=== PATIENT | female | born 1990 | race Caucasian/White ===

== ENCOUNTER 2017-08-05 19:40 | Outpatient (CLI) | payer SELFPAY ==
[2017-08-05 20:40] LABS: HEMATOCRIT 34.8 % (36.0-47.0); HEMOGLOBIN 11.7 g/dL (12.0-15.5); MEAN CORPUSCULAR HEMOGLOBIN 28.9 pg (27.0-33.4); MEAN CORPUSCULAR HGB CONC 33.6 g/dL (32.0-36.0); MEAN CORPUSCULAR VOLUME 86 fl (80-97); PLATELET COUNT 199 10^3/uL (150-450); RED BLOOD COUNT 4.05 10^6/uL (3.72-5.28); RED CELL DISTRIBUTION WIDTH 13.5 % (11.5-14.0); WHITE BLOOD COUNT 12.9 10^3/uL (4.0-10.5)
[2017-08-05 20:54] LABS: APPEARANCE,URINE SLIGHTLY-CLOUDY; BILIRUBIN,URINE NEGATIVE (NEGATIVE); COLOR,URINE YELLOW; GLUCOSE, URINE NEGATIVE (NEGATIVE); KETONES,URINE 80 mg/dL (NEGATIVE); LEUKOCYTE ESTERASE,URINE NEGATIVE (NEGATIVE); NITRITE,URINE NEGATIVE (NEGATIVE); PROTEIN,URINE NEGATIVE (NEGATIVE); URINE SPECIFIC GRAVITY 1.021; UROBILINOGEN,URINE NEGATIVE mg/dL (<2.0)
[2017-08-05] MEDS ORDERED: ACETAMINOPHEN 325 MG TABLET PO ONE (20:58)
[2017-08-05] MEDS ORDERED: ACETAMINOPHEN 325 MG TABLET ONE (20:59)
[2017-08-05 21:04] LABS: ABSOLUTE LYMPHOCYTES# (MANUAL) 0.4 10^3/uL (0.5-4.7); ABSOLUTE MONOCYTES # (MANUAL) 0.4 10^3/uL (0.1-1.4); ABSOLUTE NEUTROPHILS# (MANUAL) 12.1 10^3/uL (1.7-8.2); BASOPHILS % (MANUAL) 0 % (0-2); EOSINOPHILS % (MANUAL) 0 % (0-6); LYMPHOCYTES % (MANUAL) 3 % (13-45); MONOCYTES % (MANUAL) 3 % (3-13); SEGMENTED NEUTROPHILS % (MAN) 94 % (42-78); TOTAL CELLS COUNTED 100
[2017-08-05 21:05] LABS: PLATELET COMMENT ADEQUATE; RBC MORPHOLOGY COMMENT NORMO-CYTIC/CHROMIC
[2017-08-05 21:19] LABS: URINE AMPHETAMINES SCREEN NEGATIVE; URINE BARBITURATES SCREEN NEGATIVE; URINE BENZODIAZEPINES SCREEN NEGATIVE; URINE COCAINE SCREEN NEGATIVE; URINE MARIJUANA (THC) SCREEN NEGATIVE; URINE METHADONE SCREEN NEGATIVE; URINE PHENCYCLIDINE SCREEN NEGATIVE
[2017-08-05 21:34] LABS: RUBELLA INTERPRETATION POSITIVE
[2017-08-05 22:07] LABS: CHLAM PCR NOT DETECTED (NOT DETECT); GON PCR NOT DETECTED (NOT DETECT)
[2017-08-05] MEDS ORDERED: RINGERS SOLUTION,LACTATED 1,000 ML IV PRN (22:11)
--- NOTE | 2017-08-05 22:27 | RADIOLOGY REPORT (SQ) ---
EXAM DESCRIPTION: U/S OB 14+ TA/1 GEST W/DOPPLER COMPLETED DATE/TIME: 08/05/2017 10:15 pm REASON FOR STUDY: no care, need CHANDAN/SDP, ega, anatomy,pres COMPARISON: None. TECHNIQUE: Limited transabdominal grayscale ultrasound for evaluation of specific requested obstetri janine parameters. LIMITATIONS: Advanced gestational age. FINDINGS: CERVICAL LENGTH: 3.1 cm Closed. CHANDAN: 12.2 cm. FHR: 173 beats per minute. PRESENTATION: Cephalic. OTHER: Anterior placenta. Estimated gestational age by today's ultrasound is 34 weeks 2 days with es timated date of delivery 09/14/2017. Estimated weight is 2436 g. estimated weight is at t he 19th percentile based on provided LMP. Limited anatomic survey demonstrates no gross abnormality. IMPRESSION: SINGLE LIVE INTRAUTERINE WITH ESTIMATED GESTATIONAL AGE OF 34 WEEKS AND 2 DAYS BY TODAY'S ULTRASOUND WITH ESTIMATED WEIGHT AT THE 19TH PERCENTILE BASED ON LMP PROVIDED. LIMITED ANATOMIC SURVEY DEMONSTRATES NO GROSS ABNORMALITY. TECHNICAL DOCUMENTATION: JOB ID: [id number] [employer]- All Rights Reserved
[2017-08-05] MEDS ORDERED: ONDANSETRON HCL INJ/PF 4 MG/2 ML SDV IV ONE (22:45)
[2017-08-05] MEDS ORDERED: ONDANSETRON HCL INJ/PF 4 MG/2 ML SDV ONE (22:52)
--- NOTE | 2017-08-05 23:13 | Non Stress Test Report ---
Non Stress Test Datetime Report Generated by CPN: 08/05/2017 23:13 DEMOGRAPHIC EGA NST: 34.2 INDICATION Indication for Study: Ordered by Provider; Other Indication for Study (NST) Other: labor check URINE RESULTS Urine Protein, NST: Negative Urine Ketones - NST: Positive Urine Glucose - NST: Negative Urine Blood - NST: Negative MONITORING Time on Monitor: 08/05/2017 20:11 Time off Monitor: 08/05/2017 22:57 NST Duration: 166 NST INTERVENTIONS Physician Notified NST: Dr. Fry BABY A: [id number] BABY A Movement : Present Contraction Frequency : irregular FHR Baseline : 155 Accelerations : 15X15 Decelerations : None Variability : Moderate 6-25bpm NST Review: Meets Criteria for Reactive NST NST Review and Verified By : Julissa Ko RN NST Results: Reactive NST REPORT Report Trigger: Send Report
[2017-08-08 14:39] LABS: HEPATITIS C VIRUS AB <0.1 s/co ratio (0.0-0.9)
[2017-08-08 15:24] LABS: HEPATITS B SURFACE ANTIGEN Negative (Negative)
== END 2017-08-05 23:09 | disposition home or self-care (01) ==
LOC: LC 19:40
PROVIDERS: ATTEND Student in an Organized Health Care Education/Training Program
PROC: 4A1HXCZ Monitoring of Products of Conception, Cardiac Rate, External Approach (ICD-10-PCS; principal; 2017-08-05)
DX: O47.03 False labor before 37 completed weeks of gestation, third trimester (principal); Z3A.34 34 weeks gestation of pregnancy
CPT/HCPCS: 59025; 86900; 86901; 36415; 84439; 86850; 84443; 85025; 86762; 86592; 81001; 87081; 87340; 80307; 87491; 87591; 80361; 86803; 86804; 76805; 93976; J2405

== ENCOUNTER 2017-08-06 08:56 | Outpatient (CLI) | payer SELFPAY ==
[2017-08-06 09:44] LABS: APPEARANCE,URINE SLIGHTLY-CLOUDY; BILIRUBIN,URINE NEGATIVE (NEGATIVE); COLOR,URINE YELLOW; GLUCOSE, URINE NEGATIVE (NEGATIVE); KETONES,URINE TRACE mg/dL (NEGATIVE); LEUKOCYTE ESTERASE,URINE LARGE (NEGATIVE); NITRITE,URINE NEGATIVE (NEGATIVE); PROTEIN,URINE 30 mg/dL (NEGATIVE); URINE SPECIFIC GRAVITY 1.016
[2017-08-06 09:51] LABS: AMNISURE (ROM) NEGATIVE (NEGATIVE)
[2017-08-06 10:01] LABS: URINE AMPHETAMINES SCREEN NEGATIVE; URINE BARBITURATES SCREEN NEGATIVE; URINE BENZODIAZEPINES SCREEN NEGATIVE; URINE COCAINE SCREEN NEGATIVE; URINE MARIJUANA (THC) SCREEN NEGATIVE; URINE METHADONE SCREEN NEGATIVE; URINE PHENCYCLIDINE SCREEN NEGATIVE
[2017-08-06 10:16] LABS: T.VAGINALIS (WET MOUNT) NO TRICHOMONAS SEEN; WBCS (WET MOUNT) FEW WBCS SEEN; YEAST (WET MOUNT) YEAST SEEN
[2017-08-06 10:17] LABS: RBCS (WET MOUNT) RARE RBCS SEEN
--- NOTE | 2017-08-06 11:06 | RADIOLOGY REPORT (SQ) ---
EXAM DESCRIPTION: U/S OB LIMITED COMPLETED DATE/TIME: 08/06/2017 10:41 am REASON FOR STUDY: CHANDAN, vaginal leaking COMPARISON: None. TECHNIQUE: Limited transabdominal grayscale ultrasound for evaluation of specific requested obstetri janine parameters. LIMITATIONS: None. FINDINGS: CERVICAL LENGTH: Not visualized. CHANDAN: 7.4 cm. FHR: 149 beats per minute. PRESENTATION: Cephalic. OTHER: Anterior placenta. IMPRESSION: LIMITED OBSTETRICAL ULTRASOUND WITH MEASURED PARAMETERS DELINEATED ABOVE. Trimester of : Third trimester - 28 weeks to delivery. TECHNICAL DOCUMENTATION: JOB ID: [id number] [employer]- All Rights Reserved
== END 2017-08-06 11:30 | disposition home or self-care (01) ==
LOC: LC 08:56
PROVIDERS: ATTEND Obstetrics & Gynecology
PROC: 4A1HXCZ Monitoring of Products of Conception, Cardiac Rate, External Approach (ICD-10-PCS; principal; 2017-08-06)
DX: O47.03 False labor before 37 completed weeks of gestation, third trimester (principal); Z3A.36 36 weeks gestation of pregnancy
CPT/HCPCS: 59025; 84112; 87210; 81005; 80307; 76815; Q0114

== ENCOUNTER 2017-08-06 19:16 | Outpatient (CLI) | payer SELFPAY | END 2017-08-06 19:40 | disposition home or self-care (01) | LOC: LC 19:16 | PROVIDERS: ATTEND Obstetrics & Gynecology | DX: Z53.9 Procedure and treatment not carried out, unspecified reason (principal) ==